=== PATIENT | male | born 1950 | race Caucasian/White ===

== ENCOUNTER → 2017-07-16 | Outpatient (CLI) | payer OTHER ==
[~2017-07-16] MED LIST: ALPR0.5T6 PO; ASPI-496 PO; ATOR40TA PO; CELE200C PO; CEPH-368 PO; DIAZ5TAB4 PO; ESOM40CA PO; FLUO40CA9 PO; FURO80TA77 PO; HYDR-3237 PO; IRBE300T40 PO; METO-93 PO; OMEG1CAP23 PO; OXYC-302 PO; POTA20TA91 PO; REGADENOSON 0.4 MG/5 ML SYRINGE ONE; ZOLP10TA5 PO
== END ==
LOC: CFH 13:08
PROVIDERS: ATTEND Internal Medicine Cardiovascular Disease
DX: I25.10 Atherosclerotic heart disease of native coronary artery without angina pectoris (principal); I25.2 Old myocardial infarction
CPT/HCPCS: 78452; 93017; A9502; J2785

== ENCOUNTER → 2017-07-18 | Outpatient (CLI) | payer OTHER ==
[~2017-07-18] MED LIST changes: -REGADENOSON 0.4 MG/5 ML SYRINGE ONE
== END | disposition home or self-care (01) ==
LOC: CFH 10:37
PROVIDERS: ATTEND Internal Medicine Cardiovascular Disease
DX: I25.10 Atherosclerotic heart disease of native coronary artery without angina pectoris (principal); I10 Essential (primary) hypertension; I51.7 Cardiomegaly; E78.5 Hyperlipidemia, unspecified; I25.2 Old myocardial infarction
CPT/HCPCS: 93306